=== PATIENT | female | born 1960 ===

== ENCOUNTER 2017-08-15 10:32 | Emergency (ER) | payer MEDICARE, OTHER ==
[~2017-08-15] VITALS: Ht 157.5 cm; Wt 92.8 kg
[2017-08-15 10:41] VITALS: BP 148/94
[2017-08-15] MEDS ORDERED: BACL20TA PO (11:19)
[2017-08-15] MEDS ORDERED: GABA300C10 PO (11:19)
[2017-08-15] MEDS ORDERED: HYDR-3307 PO (11:19)
== END 2017-08-15 11:50 | disposition home or self-care (01) ==
LOC: ED 11:35
DX: S83.91XA Sprain of unspecified site of right knee, initial encounter (principal); K21.9 Gastro-esophageal reflux disease without esophagitis; W01.0XXA Fall on same level from slipping, tripping and stumbling without subsequent striking against object, initial encounter; Y93.89 Activity, other specified; Y92.59 Other trade areas as the place of occurrence of the external cause; Y99.8 Other external cause status
CPT/HCPCS: 29505; 99284

== ENCOUNTER 2018-02-17 18:47 | Emergency (ER) | payer MEDICARE, OTHER ==
[~2018-02-17] VITALS: Ht 157.5 cm; Wt 89.1 kg
[~2018-02-17 18:47] MED LIST: BACL20TA PO; GABA300C10 PO; HYDR-3307 PO
[2018-02-17] MEDS ORDERED: METH10TA4 PO (19:11)
[2018-02-17] MEDS ORDERED: FAMOTIDINE 20 MG TABLET PO ONE (19:30)
[2018-02-17] MEDS ORDERED: FAMOTIDINE 20 MG TABLET ONE (19:36)
[2018-02-17 20:30] VITALS: BP 127/78
== END 2018-02-17 20:32 | disposition home or self-care (01) ==
LOC: ED 19:12
DX: T78.00XA Anaphylactic reaction due to unspecified food, initial encounter (principal); I10 Essential (primary) hypertension; E11.9 Type 2 diabetes mellitus without complications; K21.9 Gastro-esophageal reflux disease without esophagitis; M06.9 Rheumatoid arthritis, unspecified; X58.XXXA Exposure to other specified factors, initial encounter; Y93.9 Activity, unspecified; Y92.9 Unspecified place or not applicable; Y99.8 Other external cause status
CPT/HCPCS: 99283; J7512

== ENCOUNTER 2020-11-15 20:55 | Emergency (ER) | payer MEDICARE, OTHER ==
[~2020-11-15] VITALS: Ht 157.5 cm; Wt 81.4 kg
[~2020-11-15 20:55] MED LIST changes: +HYDR-3248 PO; -HYDR-3307 PO; +METH10TA4 PO
[2020-11-15 21:49] VITALS: BP 164/77
== END 2020-11-15 22:41 | disposition home or self-care (01) ==
LOC: ED 21:49
DX: T78.3XXA Angioneurotic edema, initial encounter (principal); T78.1XXA Other adverse food reactions, not elsewhere classified, initial encounter; I10 Essential (primary) hypertension; E11.9 Type 2 diabetes mellitus without complications; K21.9 Gastro-esophageal reflux disease without esophagitis
CPT/HCPCS: 99283; J7512